=== PATIENT | female | born 1980 | race Caucasian/White ===

== ENCOUNTER 2016-10-02 14:59 | Emergency (ER) | payer BC, MEDICAID ==
[2016-10-02 16:08] VITALS: BP 128/85
[2016-10-02] MEDS ORDERED: Ketorolac INJ* 60 MG/2 ML VIAL IM ONE (16:45)
--- NOTE | 2016-10-02 20:44 | UC ---
Jane Hutchison SooYoung, scribed for Cadence Higuera DO on 10/02/16 at 1624 . Back Pain HPI - HPI Summary HPI Summary: A 36 y/o F presents to [facility] [place] with c/o lumbar/sacral pain onset this AM hours [employer]. Pt turned and her back "snapped, crackled, popped." L side is much worse than R. Pain radiating out to L hip. It caused her to lose her balance and cry. She was able to go to work, but the pain did not subside. She called her doctor, who referred her to [facility] [place]. She rates the pain as 8 out of 10 if she's still, and 10 out of 10 when moving. Associated abd pain. Denies: n/v/d, fever, CP, SOB. PT notes having had URI recently with a lot of coughing. Aggravating fx: movement. She has used lidocaine patches, ice packs with no relief. Pert PMHx: sciatica, osteoarthritis, DDD; but today's sx do not feel like past episodes of these. - History of Current Complaint Chief Complaint: UCBackPain Stated Complaint: BACK PAIN Time Seen by Provider: 10/02/16 16:18 Hx Obtained From: Patient Hx Last Menstrual Period: 09/29/15 Onset/Duration: Sudden Onset, Lasting Hours, Still Present Timing: Constant Severity Initially: Severe Severity Currently: Severe Pain Intensity: 8 Pain Scale Used: 0-10 Numeric Back Pain: Is Discrete @ - sacrum, Radiates To - hips, L more than R Character: Sharp Aggravating: Movement, Lifting, Bending, Walking Alleviating: Rest - not moving Associated Signs And Symptoms: Positive: Abdominal Pain. Negative: Swelling, Redness, Bruising, Fever, Weakness, Numbness, Tingling, Flank Pain, Bladder Incontinence, Bowel Incontinence - Risk Factors Cauda Equina Risk Factors: Negative - Allergies/Home Medications Allergies/Adverse Reactions: Allergies Allergy/AdvReac Type Severity Reaction Status Date / Time No Known Allergies Allergy Verified 10/02/16 15:56 Home Medications: Home Medications Amphetamine/Dextroamph ER(NF) [Adderal XR (NF)] 1 cap DAILY 10/02/16 [History Confirmed 10/02/16] Antidepressant Med 1 tab DAILY 10/02/16 [History] Chlorzoxazone [Lorzone] 500 mg TID 10/02/16 [History Confirmed 10/02/16] Ibuprofen TAB* [Advil TAB*] 2 tab PRN 10/02/16 [History] celeCOXIB CAP* [Celebrex CAP*] 1 cap BID 10/02/16 [History Confirmed 10/02/16] PMH/Surg Hx/FS Hx/Imm Hx - Additional Past Medical History Additional PMH: DDD, osteoarthritis, sciatica Previously Healthy: No Endocrine History Of: Denies: Diabetes, Thyroid Disease Cardiovascular History Of: Denies: Cardiac Disorders, Hypertension Respiratory History Of: Denies: COPD, Asthma GI/ History Of: Denies: Ulcer - Surgical History Surgical History: Yes Surgery Procedure, Year, and Place: hernia repair 1984, gastric bypass 2000, t& a 2009 - Family History Known Family History: Positive: Unknown - adopted - Social History Occupation: Employed Full-time Lives: Alone Alcohol Use: None Substance Use Type: None Smoking Status (MU): Light Every Day Tobacco Smoker Type: Cigarettes Cessation Counseling: Patient Advised to Stop Review of Systems Constitutional: Negative Skin: Negative Eyes: Negative ENT: Negative Respiratory: Negative Cardiovascular: Negative Gastrointestinal: Negative Genitourinary: Negative Motor: Negative Neurovascular: Negative Musculoskeletal: Other: - pos: lower back pain radiating to hips, L worse than R Neurological: Negative Psychological: Negative All Other Systems Reviewed And Are Negative: Yes Physical Exam Triage Information Reviewed: Yes Appearance: Well-Appearing, Pain Distress - MODERATE, DRAMATIC, Obese Vital Signs: Initial Vital Signs Temp 97.9 F 10/02/16 16:00 Pulse 78 10/02/16 16:00 Resp 18 10/02/16 16:00 BP 128/85 10/02/16 16:00 Pulse Ox 100 10/02/16 16:00 Vital Signs Reviewed: Yes Eyes: Positive: Conjunctiva Clear. Negative: Discharge ENT: Positive: Hearing grossly normal. Negative: Muffled/hoarse voice Neck exam: Normal Neck: Positive: Supple Respiratory: Positive: Chest non-tender, Lungs clear, Normal breath sounds, No respiratory distress Cardiovascular: Positive: RRR, No Murmur Musculoskeletal Exam: Normal Musculoskeletal: Positive: ROM Limited @ - IN BACK AT ALL PLANES DUE TO PAIN, Other: - paraspinal spasm and tenderness bl Neurological: Positive: Alert, Muscle Tone Normal, Other: - strength, sansation and reflexes intact bl Psychological Exam: Normal Psychological: Positive: Age Appropriate Behavior Skin Exam: Normal, Other - warm, dry, nml color Back Pain Course/Dx - Differential Dx/Diagnosis Differential Diagnosis/HQI/PQRI: Herniated Disc, Strain, Other - sciatica, piriformis syndrom Provider Diagnoses: low back strain Discharge - Discharge Plan Condition: Stable Disposition: HOME Prescriptions: Cyclobenzaprine TAB* [Flexeril TAB*] 10 mg PO TID PRN #30 tab PRN Reason: Pain HYDROcodone/ACETAMIN 5-325 MG* [[place] 5-325 TAB*] 1 tab PO Q6H PRN #14 tab MDD 4 TABS PRN Reason: Pain predniSONE TAB* [Deltasone TAB*] 40 mg PO DAILY #10 tab Patient Education Materials: Low Back Strain (ED) Referrals: Lyn Reyes NP [Nurse Practitioner] - 4 Days Additional Instructions: MUSCLE RELAXERS: Muscle relaxing medications are usually prescribed for acute muscle spasm or injury to the neck and back. They are often combined with antiinflammatory pain medication for increased relief. You may stop the muscle relaxer when the pain and stiffness have improved. Start the medication again if spasms recur. Muscle relaxers may cause drowsiness, especially with the first dose. Do not operate machinery or drive while under the effects of the medication. Most muscle relaxers last up to 24 hours. Do not combine the medication with alcohol. ORAL NARCOTIC MEDICATION: You have been given a prescription for pain control. This medication is a narcotic. It's best taken with food, as nausea can result if taken on an empty stomach. Don't operate machinery or drive within six hours of taking this medication. Do not combine this medicine with alcohol, or with any medication which can cause sedation (such as cold tablets or sleeping pills) unless you get permission from the physician. Narcotics tend to cause constipation. If possible, drink plenty of fluids and eat a diet high in fiber and fruits. CORTICOSTEROID MEDICATION: You have been given a medicine of the cortisone class. This medication is used to control inflammation or allergy. It is usually only given for a short period of time, until the acute process subsides. There are usually no side effects from short-term use of cortisone-like medications. Some persons feel an increased sense of well-being and are not sleepy at bedtime. Long-term use of cortisone medications is best avoided, unless required for a severe condition. If your condition does not remit, or relapses after the course of corticosteroid medication, you should consult your physician. Contact the physician if you develop lightheadedness, black or tarry stools , swelling of the legs, or significant rapid change in weight. PHYSICAL THERAPY REFERRAL: You have been prescribed physical therapy. Treatments may include stretching, exercise, application of heat or cold, and other modalities. After an injury, PT can reduce swelling and pain. In recovery, PT is used to restore mobility and strength. Your specific treatment goals are: Reduction of Swelling (EGS, US, ice as needed) __x___ Pain Reduction (EGS, US, ice as needed) TENS Pack Fitting and Instruction Wound Hydrotherapy _x____ Preservation of Mobility Jehovah'S Witness of Mobility Strength Jehovah'S Witness __x___ Work or Sports Hardening This instruction sheet also serves as your PHYSICAL THERAPY REFERRAL! Please take it with you to the therapist, so he/she will be aware of your diagnosis and treatment plan. You may see the physical therapist of your choice for these treatments, but may wish to check with your insurance to be sure the provider you select is covered. It's important to see the doctor to whom you have been referred for follow up. YOU WOULD LIKELY BENEFIT FROM OSTEOPATHIC MANIPULATION. WE RECOMMEND THAT YOU FIND AN OSTEOPATHIC PHYSICIAN IN YOUR AREA WHO FOCUSES EXCLUSIVELY ON OSTEOPATHIC MANIPULATION WITH EXPERTISE IN LYMPHATIC, MYOFACIAL AND VISCERAL WORK The documentation as recorded by the Jane alicea SooYoung accurately reflects the service I personally performed and the decisions made by me, Cadence Higuera DO.
== END 2016-10-02 17:40 | disposition home or self-care (01) ==
LOC: UCEAST 14:59
DX: S39.012A Strain of muscle, fascia and tendon of lower back, initial encounter (principal); X50.1XXA Overexertion from prolonged static or awkward postures, initial encounter; Y93.9 Activity, unspecified; Y92.9 Unspecified place or not applicable; R10.84 Generalized abdominal pain; F17.210 Nicotine dependence, cigarettes, uncomplicated
CPT/HCPCS: 96372; 99212; G0463; J1885

== ENCOUNTER 2018-03-08 08:14 | Emergency (ER) | payer BC, MEDICAID ==
--- NOTE | 2018-03-08 08:50 | ED ---
GI/ HPI - HPI Summary HPI Summary: Bariatric status patient presents with nausea, vomiting and diarrhea for the past 2 weeks. She reports this started as nausea, vomiting and diarrhea and then simply diarrhea persisted until the past 48 hours when nausea and vomiting have returned. She admits to feeling feverish on and off for about an hour at a time but nothing consistent or persistent. She does have a headache currently - feels like she is being squeezed on both sides her head. Also admits to some muscle soreness. Diarrhea is triggered by eating/drinking anything including water. She has been trying to stay hydrated w/ water, electrolyte water, etc. Has not tried BRAT diet - can't tolerate yet. Has tried soup broth, crackers. Stool is now yellow, mucousy. No melena nor hematochezia. Denies chest pain, shortness of breath, respiratory symptoms, difficulty breathing or swallowing, vaginal symptoms such as irritation/discharge, and no urinary symptoms such as dysuria/urinary frequency/flank pain/hematuria, and no skin changes. She does feel that her ankles and feet are more swollen then she is accustomed to - left greater than right. Feels they've improved this morning since yesterday. She's not had this issue before and is not sure why she is having this. LMP 25 - spotting a few days ago - otherwise, regular cycle. Follows w/ TRADING ANALYST annually - no abnormal reproductive hx. Takes multiple supplements daily and follows w/ PCP for nutritional labs. - History of Current Complaint Chief Complaint: EDNauseaVomitDiarrh Time Seen by Provider: 03/08/18 08:23 Stated Complaint: N/D X 2 WEEKS Hx Obtained From: Patient Hx Last Menstrual Period: 09/29/15 Pain Intensity: 7 - Allergy/Home Medications Allergies/Adverse Reactions: Allergies Allergy/AdvReac Type Severity Reaction Status Date / Time No Known Allergies Allergy Verified 03/08/18 08:21 Home Medications: Home Medications Amphetamine/Dextroamph ER(NF) [Adderal XR (NF)] 20 mg PO .NOON 03/08/18 [ History Confirmed 03/08/18] Amphetamine/Dextroamph ER(NF) [Adderal XR (NF)] 40 mg PO QAM 03/08/18 [History Confirmed 03/08/18] Cetirizine* [ZyrTEC 10 MG TAB*] 10 mg PO DAILY 03/08/18 [History Confirmed 03/08] Chlorzoxazone 500 mg PO TID 03/08/18 [History Confirmed 03/08/18] Diazepam TAB(*) [Valium TAB(*)] 5 mg PO TID PRN 03/08/18 [History Confirmed 08/15] Doxepin (NF) 100 mg PO BEDTIME 03/08/18 [History Confirmed 03/08/18] Pantoprazole TAB (NF) [Protonix TAB (NF)] 40 mg PO BID 03/08/18 [History Confirmed 03/08/18] Ranitidine TAB (NF) [Zantac TAB (NF)] 300 mg PO BEDTIME 03/08/18 [History Confirmed 03/08/18] Sucralfate TAB* [Carafate*] 1 gm PO ACHS 03/08/18 [History Confirmed 03/08/18] celeCOXIB CAP* [CeleBREX CAP*] 200 mg PO BID 03/08/18 [History Confirmed ] PMH/Surg Hx/FS Hx/Imm Hx Previously Healthy: Yes Endocrine/Hematology History: Denies: Hx Anticoagulant Therapy, Hx Blood Disorders, Hx Diabetes, Hx Thyroid Disease Cardiovascular History: Denies: Hx Hypertension Respiratory History: Denies: Hx Asthma, Hx Chronic Obstructive Pulmonary Disease (COPD) GI History: Reports: Hx Gastroesophageal Reflux Disease - take sulcrafate, ranitidine and PPI, Other GI Disorders - h/o hernia w/ repair 1984; dysmenorrhea ; Rojas en y 2000 Denies: Hx Cirrhosis, Hx Crohn's Disease, Hx Diverticulosis, Hx Gall Bladder Disease, Hx Gastrointestinal Bleed, Hx Hiatal Hernia, Hx Irritable Bowel, Hx Obstructive Bowel, Hx Ulcer History: Denies: Hx Kidney Infection, Hx Kidney Stones, Hx Renal Disease - Surgical History Surgery Procedure, Year, and Place: hernia repair 1984, gastric bypass 2000, t& a 2009 Infectious Disease History: No Infectious Disease History: Denies: Hx Hepatitis, Hx Human Immunodeficiency Virus (HIV), Traveled Outside the [place] in Last 30 Days - Family History Known Family History: Positive: Unknown - adopted - Social History Alcohol Use: None Hx Substance Use: No Substance Use Type: Reports: None Hx Tobacco Use: Yes Smoking Status (MU): Current Every Day Smoker Type: Cigarettes Review of Systems Positive: Fever - subjective, Fatigue - feels wiped out. Negative: Chills Eyes: Negative ENT: Negative Cardiovascular: Negative Respiratory: Negative Positive: Vomiting, Diarrhea, Nausea. Negative: Abdominal Pain Genitourinary: Negative Musculoskeletal: Negative Skin: Negative Positive: Headache Psychological: Normal All Other Systems Reviewed And Are Negative: Yes Physical Exam Triage Information Reviewed: Yes Vital Signs On Initial Exam: Initial Vitals Temp Pulse Resp BP Pulse Ox 99.3 F 77 16 125/78 100 03/08/18 08:17 03/08/18 08:17 03/08/18 08:17 03/08/18 08:17 03/08/18 08:17 Vital Signs Reviewed: Yes Appearance: Positive: Ill-Appearing - appears mildly fatigued but is alert and reponsive Skin: Positive: Warm, Skin Color Reflects Adequate Perfusion, Dry Head/Face: Positive: Normal Head/Face Inspection Eyes: Positive: Normal, EOMI, PENELOPE, Conjunctiva Clear - anicteric ENT: Positive: Normal ENT inspection, Hearing grossly normal, Pharynx normal - mucosa moist Neck: Positive: Supple Respiratory/Lung Sounds: Positive: Clear to Auscultation, Breath Sounds Present Cardiovascular: Positive: Normal, RRR, Pulses are Symmetrical in both Upper and Lower Extremities, Leg Edema Left - mild about the lateral ankle - + pitting, S1 , S2. Negative: Murmur, Rub Abdomen Description: Positive: No Organomegaly, Soft, Other: - RUQ TTP and lower /central pubic TTP. Negative: Distended, Hernia @ Bowel Sounds: Positive: Present Musculoskeletal: Positive: Normal, Strength/ROM Intact Neurological: Positive: Normal, Sensory/Motor Intact, Alert, Oriented to Person Place, Time, CN Intact II-III Psychiatric: Positive: Anxious Diagnostics - Vital Signs Vital Signs Temp Pulse Resp BP Pulse Ox 03/08/18 08:17 99.3 F 77 16 125/78 100 - Laboratory Result Diagrams: 03/08/18 08:51 03/08/18 08:51 Lab Statement: Any lab studies that have been ordered have been reviewed, and results considered in the medical decision making process. Re-Evaluation - Re-Evaluation First Eval Change: Improved - nausea improved - resting comfortably Second Eval Change: Worse - feling worse - diarrhea has returned and still has ab pain - will order CT GIGU Course/Dx - Course Course Of Treatment: Patient presents with diarrhea 2 weeks. The source of this is unknown is no one else that she's been around has this and she denies eating or drinking any new foods or beverages. She is a bariatric Rojas-en-Y patient over a decade ago. She reports that she keeps up with her nutritional requirements and follows up routinely. No history of GI issues since surgery. She has tried Imodium and Lomotil the past few days to stop her diarrhea which has been unsuccessful. She feels weak and dehydrated today and reports her stool is now yellowish mucousy. Her white blood cells are within normal limits she does appear to be dehydrated, especially hypokalemic. Once her nausea was controlled, this was replaced by mouth with 40 mEq of potassium chloride. Patient tolerated that well. Her CRUZ and energy also improved w/ hydration replacement. Her stool is negative for C. difficile and blood however she does have a positive immunoassay. Although she was feeling better for period of time , she reported feeling worse upon recheck and so CT of her abdomen and pelvis was ordered to assess for colitis. CT reveals ascending colitis and possibly cholecystitis. Since pt sx corrected and she is feeling better after CT (and has no RUQ pain w/ palpation), she is requesting to go home and f/u outpt. Discussed w/ Dr. Escamilla who agrees pt may be d/c'd home w/ anbx and close f/u. Pt may have further assessment of her gallbladder by general surgery should this issue persist. Danger s/sx of 2when to return to ED reviewed. Also discussed that if stool cx's return w/ bacterial oraganisms that require different anbx, she will receive a call. - Diagnoses Provider Diagnoses: Colitis, Diarrhea, Cholecystitis Discharge - Sign-Out/Discharge Documenting (check all that apply): Discharge/Admit/Transfer - Discharge Plan Condition: Stable Disposition: HOME Prescriptions: Ciprofloxacin TAB* [Cipro 500 MG TAB*] 500 mg PO BID #14 tab metroNIDAZOLE [Flagyl 500 MG TAB] 500 mg PO TID #21 tab Patient Education Materials: Infectious Colitis (ED) Referrals: Terell COPELAND,Trevor Jerome [Primary Care Provider] - Additional Instructions: Stay hydrated with water, electrolyte replacement drinks another clear/fat-free liquids over the next 48 hours. You may gradually advance your diet to bananas , rice, applesauce and toast again without fats. Initiate your antibiotics and take as directed. If additional cultures return requiring you to change medications, you will receive a phone call with that update. It is important that you follow up with her PCP regarding the results of your ultrasound and CT scan as not only to have colitis which is mostly caused by your diarrhea (or your diarrhea has caused colitis) but you also have some sludge in your gallbladder and thickening of your gallbladder. This may be addressed at a later date symptoms improve. *If you feel worse, return to the emergency department. - Billing Disposition and Condition Condition: STABLE Disposition: Home
[2018-03-08] MEDS ORDERED: Thiamine IV 100 MG, Folic Acid IV* 1 MG, Multiple Vitamin IV ADULT* 10 ML in NS 0.9% 10... IV ONE (08:55)
[2018-03-08 08:59] LABS: ABS Basophils 0.1 10^3/ul (0-0.2); ABS Eosinophils 0.2 10^3/ul (0-0.6); ABS Lymphocytes 1.7 10^3/ul (1.0-4.8); ABS Monocytes 0.5 10^3/ul (0-0.8); ABS Nucleated RBC 0 10^3/ul; Eosinophil % 2.3 % (0-6); Hematocrit 40 % (35-47); Hemoglobin 13.8 g/dl (12.0-16.0); Lymphocyte % 18.2 % (25-47); Mean Corpuscular HGB Conc 35 g/dl (31-36); Mean Corpuscular Hemoglobin 33 pg (27-31); Mean Corpuscular Volume 96 fL (80-97); Mean Platelet Volume 8.7 um3 (7.4-10.4); Nucleated Red Blood Cells % 0; Platelet Count 374 10^3/ul (150-450); Red Blood Count 4.18 10^6/ul (4.0-5.4); Red Cell Distribution Width 13 % (10.5-15); White Blood Count 9.4 10^3/ul (3.5-10.8)
[2018-03-08 09:22] LABS: INR 1.01 (0.77-1.02)
[2018-03-08 09:27] LABS: EGFR Non-African American 99.2 (>60)
[2018-03-08] MEDS ORDERED: PROCHLORPERAZINE INJ 5 MG/ML 2 ML VIAL IV ONE (09:29)
--- NOTE | 2018-03-08 10:05 | RAD ---
Indication: RIGHT upper quadrant pain. Nausea and vomiting. Diarrhea for 2 weeks. Comparison: December 22, 2016 CT. Technique: RIGHT upper quadrant ultrasound. Report: Appropriate direction flow documented in the portal and hepatic veins. 20 cm liver is normal in echogenicity. 0.8 cm maximum dimension well-circumscribed markedly hyperechoic nonshadowing nodule at the RIGHT hepatic lobe is consistent with a small hemangioma without concern. Negative for intrahepatic biliary dilatation. 3 mm common bile duct. Adequately distended gallbladder is remarkable for a biliary sludge ball. Gallbladder wall is thickened measuring up to 5 mm. Negative for pericholecystic fluid. Negative for sonographic Figueredo's sign. The pancreatic tail is partially obscured due to bowel gas with the visualized pancreas unremarkable. Negative for ascites. 11.6 cm RIGHT kidney is unremarkable. IMPRESSION: 1. Mildly enlarged liver. 2. Biliary sludge in the gallbladder and mild diffuse gallbladder wall thickening. No secondary findings such as pericholecystic fluid or sonographic Figueredo's sign to favor acute cholecystitis.
[2018-03-08] MEDS ORDERED: Potassium Chlor TAB* 20 MEQ TAB.ER PO ONE (10:47)
[2018-03-08 11:38] LABS: Urine Appearance Clear; Urine Blood Negative (Negative); Urine Color Yellow; Urine Ketones 1+ (Negative); Urine Protein Negative (Negative); Urine Specific Gravity 1.019 (1.010-1.030); Urine Urobilinogen Negative (Negative)
[2018-03-08] MEDS ORDERED: Iohexol 300* (CONTRAST) 10 ML SDV IV ONE (12:43)
--- NOTE | 2018-03-08 13:50 | RAD ---
INDICATION: Abdominal pain and diarrhea, possible colitis. COMPARISON: Comparison is made with a prior CT of the abdomen and pelvis from December 18, 2016 any prior right upper quadrant ultrasound from March 08, 2018. TECHNIQUE: A CT scan of the abdomen and pelvis was performed with intravenous and without oral contrast following intravenous injection of 100 ml of Omnipaque 300 nonionic contrast. Contiguous axial sections were obtained from the lung bases through the symphysis pubis. Images were reconstructed in the coronal and sagittal planes. FINDINGS: There is mild dependent bilateral lower lobe subsegmental atelectasis. No pleural effusion is present. The liver is mildly enlarged without significant focal hepatic abnormality. No calcified gallstones are seen. There is mild diffuse thickening of the gallbladder wall. The pancreas appears to be within normal limits. The kidneys and adrenal glands are normal in size. No hydronephrosis is seen. No significant focal renal abnormality is seen. The aorta is normal in caliber and demonstrates homogeneous contrast opacification. No significant enlarged retroperitoneal lymph nodes are seen. The patient is status post Rojas-en-Y gastric bypass surgery. The excluded stomach appears nondistended. The small bowel and colon appear nondistended. The appendix is within normal limits. There is mild thickening of the wall of the ascending colon versus upper limits of normal variation. There is a small periumbilical hernia containing fat. The uterus is anteverted and normal in size. There is a 2.4 cm left ovarian cyst and a 1.8 cm involuting left ovarian follicular cyst. There is a trace amount of fluid in the pelvis. No free intracranial air is seen. No significant focal osseous abnormality is seen. IMPRESSION: 1. MILD THICKENING OF THE WALL OF THE ASCENDING COLON SUGGESTING THE POSSIBILITY OF COLITIS VERSUS UPPER LIMITS OF NORMAL VARIATION. THE EXAM IS LIMITED WITHOUT ORAL CONTRAST. RECOMMEND CLINICAL CORRELATION 2. MILD GALLBLADDER WALL THICKENING. THE POSSIBILITY OF ACUTE CHOLECYSTITIS CANNOT BE EXCLUDED. RECOMMEND CLINICAL CORRELATION. 3. MILD HEPATOMEGALY, UNCHANGED. 4. STATUS POST GASTRIC BYPASS SURGERY. 5. 1.8 CM INVOLUTING LEFT FOLLICULAR CYST AND TRACE AMOUNT OF FREE INTRAPERITONEAL FLUID IN THE PELVIS.
[2018-03-08 15:21] VITALS: BP 129/79
== END 2018-03-08 15:23 | disposition home or self-care (01) ==
LOC: ED 08:14
DX: K52.9 Noninfective gastroenteritis and colitis, unspecified (principal); K81.9 Cholecystitis, unspecified; K21.9 Gastro-esophageal reflux disease without esophagitis; R16.0 Hepatomegaly, not elsewhere classified; N83.02 Follicular cyst of left ovary; R00.1 Bradycardia, unspecified; R53.83 Other fatigue; R50.9 Fever, unspecified; R51 Headache; Z98.84 Bariatric surgery status; F17.210 Nicotine dependence, cigarettes, uncomplicated
CPT/HCPCS: 36415; 74177; 76705; 80053; 81003; 82272; 83605; 83630; 83690; 83735; 84425; 84702; 85025; 85610; 85730; 86140; 86850; 86900; 86901; 87045; 87046; 87077; 87493; 87899; 93005; 96365; 96366; 96375; 99283; A9270-GY; J0780; J3411; Q9967

== ENCOUNTER 2018-03-25 09:59 | Day surgery (SDC) | payer MEDICAID ==
[~2018-03-25 09:59] MED LIST: Atracurium* 10 MG/ML 10 ML VIAL ONE; Buffered Lidocaine 0.9% SYRIN* 5 ML/SYR SYRINGE INTRADERM ONE; Dexamethasone TAB* 4 MG PO ONE; DiMENhydriNATE IV* 50 MG/ML VIAL IV PUSH PRN; Famotidine IV* 10 MG/ML 2 ML (20 mg) IV ONE; KETAMINE HCL* 50 MG/ML 10 ML VIAL ONE; Midazolam* 1 MG/ML 10 ML VIAL (10 MG) ONE; Morphine INJ* 2 MG/ML 1 ML CARPUJECT IV PRN; Naloxone* 0.4 MG/ML 1 ML VIAL IV PRN; Ondansetron TAB* 4 MG PO ONE; PROCHLORPERAZINE INJ 5 MG/ML 2 ML VIAL IV PRN; Scopolamine 1.5 mg* PATCH TRANSDERM PRN; fentaNYL* 50 MCG/ML 2 ML VIAL (100 MCG VIAL) IV PRN; fentaNYL* 50 MCG/ML 2 ML VIAL (100 MCG VIAL) ONE; oxyCODONE/Acetamin 5/325 MG* TAB PO PRN
[2018-03-25] MEDS ORDERED: Bupivacaine 0.5% SDV PF* 30ML VIAL ONE (10:09)
[2018-03-25] MEDS ORDERED: Ondansetron ODT TAB* 4 MG ONE (10:16)
[2018-03-25] MEDS ORDERED: Famotidine IV* 10 MG/ML 2 ML (20 mg) ONE (10:16)
[2018-03-25] MEDS ORDERED: Dexamethasone TAB* 4 MG ONE (10:16)
[2018-03-25] MEDS ORDERED: Ketorolac INJ* 30 MG/ML 1 ML VIAL ONE ×2 (10:17→11:02)
[2018-03-25] MEDS ORDERED: ceFAZolin 2 GM PREMIX (*) 2 GM/50 ML BAG IVPB ONE (10:17)
[2018-03-25] MEDS ORDERED: fentaNYL* 50 MCG/ML 2 ML VIAL (100 MCG VIAL) ONE ×2 (10:23→12:36)
[2018-03-25] MEDS ORDERED: PROCHLORPERAZINE INJ 5 MG/ML 2 ML VIAL ONE (11:02)
[2018-03-25] MEDS ORDERED: Lidocaine 2% PF * 5 ML VIAL ONE (11:02)
[2018-03-25] MEDS ORDERED: Neostigmine Methylsulfate* 1 MG/ML 10 ML VIAL (1 mg/ml) ONE (11:02)
[2018-03-25] MEDS ORDERED: Glycopyrrolate IV* 0.2 MG/ML 1 ML VIAL ONE ×2 (11:02→11:17)
[2018-03-25] MEDS ORDERED: Propofol* 10 MG/ML 20 ML BTL IV PUSH ONE (11:02)
[2018-03-25] MEDS ORDERED: Morphine INJ* 10 MG/ML 1 ML CARPUJECT ONE (11:04)
[2018-03-25] MEDS ORDERED: oxyCODONE/Acetamin 5/325 MG* TAB ONE (12:36)
[2018-03-25 13:02] VITALS: BP 105/70
--- NOTE | 2018-03-26 00:22 | OP ---
CC: Dr. Trevor Figueredo * DATE OF OPERATION: 03/25/18 - SDS DATE OF : 76 SURGEON: Robert Francisco MD ASSISTANT CREDIT MANAGER: Doris Salas NP ANESTHESIOLOGIST: Dr. Uribe. ANESTHESIA: General anesthetic, local infiltration by the surgeon. PRE-OP DIAGNOSIS: Biliary colic. POST-OP DIAGNOSIS: Biliary colic. OPERATIVE PROCEDURE: Laparoscopic cholecystectomy. DESCRIPTION OF PROCEDURE: The patient was supine on the operative table. The abdomen was prepped with antiseptic and draped in a sterile fashion. Local infiltrative anesthesia was administered, small umbilical incision was created, blunt port cannula was placed. Insufflation was carried out with carbon dioxide. Additional cannulae, 10 mm subxiphoid and 5 mm right upper quadrant, right anterior axillary line, placed through small stab wounds under direct vision. Gallbladder was tended upward. It was not acutely inflamed. The areolar tissue was taken down to cystic duct and the cystic artery, which were readily identified, clipped, and divided. This was taken well away from the common duct. Gallbladder was taken off the liver bed using electrocautery. Hemostasis was obtained using electrocautery. The gallbladder was removed through the subxiphoid port without difficulty. Hemostasis was good. The cannulae were removed. Pneumoperitoneum was allowed to escape. Umbilical fascia was closed with 0-Vicryl, skin with 5-0 Vicryl followed by Steri-Strips. She tolerated the procedure well, was awakened, extubated, and brought to Recovery in good condition. No complications. No drains. Pathologic specimen gallbladder. Sponge and instrument counts correct. Estimated blood loss less than 30 mL. [id number]/[facility] #: [id number] [facility]
[2018-03-28] MEDS ORDERED: Scopolamine PATCH Remove* 1 NOTE MISC PATCH OFF ONE (05:46)
== END 2018-03-25 13:23 | disposition home or self-care (01) ==
LOC: OR 09:59
PROVIDERS: ATTEND Surgery
DX: K81.1 Chronic cholecystitis (principal); Z72.0 Tobacco use; R10.11 Right upper quadrant pain; R19.7 Diarrhea, unspecified; Z98.84 Bariatric surgery status
CPT/HCPCS: 88304; A9270-GY; J0690; J0780; J1885; J2250; J2270; J2704; J2710; J3010; J8540

== ENCOUNTER 2018-07-08 17:26 | Emergency (ER) | payer BC, MEDICAID ==
[2018-07-08 18:29] VITALS: BP 133/84
--- NOTE | 2018-07-08 19:28 | UC ---
Throat Pain/Nasal Joon HPI - HPI Summary HPI Summary: Pt presents with ongoing right ear pain x 48 hours. Pt states has had intermittent fevers since colonoscopy several weeks ago. pt denies abdominal pain. Pt states x 1week has sinus pressure, PND, congestion. no analgesia taken. States ear feels full with decreased hearing. no analgesia or decongestat taken today. No other complaints. + sick contact Pt's medications reviewed this visit - History of Current Complaint Chief Complaint: UCEar Stated Complaint: FEVER Time Seen by Provider: 07/08/18 18:46 Hx Obtained From: Patient Hx Last Menstrual Period: 1 MONTH AGO Onset/Duration: Gradual Onset Pain Intensity: 8 - Allergies/Home Medications Allergies/Adverse Reactions: Allergies Allergy/AdvReac Type Severity Reaction Status Date / Time latex Allergy Mild Rash Verified 07/08/18 18:29 Home Medications: Home Medications Acetaminophen [Acetaminophen Extra Strength] 2 tab PO PRN 07/08/18 [History] Ibuprofen TAB* [Advil TAB*] 200 mg PO PRN 07/08/18 [History] Pseudoephedrine TAB* [Sudafed TAB*] 60 mg PO PRN 07/08/18 [History] guaiFENesin [Guaifenesin] 200 mg PO PRN 07/08/18 [History] PMH/Surg Hx/FS Hx/Imm Hx Previously Healthy: Yes Other History Of: Negative For: Anticoagulant Therapy - Surgical History Surgical History: Yes Surgery Procedure, Year, and Place: right inguinal hernia repair 1984, gastric bypass 2000, t&a 2009, CHOLECYSTECTOMY 2018 - Family History Known Family History: Positive: Other - noncontributory - Social History Lives: With Family Alcohol Use: None Substance Use Type: None Smoking Status (MU): Current Every Day Smoker Type: Cigarettes Amount Used/How Often: 1/2 PPD Review of Systems Constitutional: Fever ENT: Ear Ache, Nasal Discharge, Sinus Congestion Respiratory: Cough Gastrointestinal: Negative All Other Systems Reviewed And Are Negative: Yes Physical Exam - Summary Physical Exam Summary: Vital Signs Reviewed: Yes A+Ox3, no distress Eyes: Conjunctiva Clear, PENELOPE. EOM intact and full ENT: Hearing grossly normal right TM + fluid, erythema left TM scant fluid, turbiantes inflammed and boggy, + PND, mmoist, uvula midline, no exudate, no erythema Neck: Positive: Supple Respiratory: Positive: No respiratory distress, No accessory muscle use + CTA throughout no w/r Cardiovascular: RRR nl s1, s2 no m/r CBT <2 sec abd soft + BS nt/nd no guarding, no distension Musculoskeletal Exam: DAVALOS x 4 without difficulty Strength Intact, ROM Intact Neurological: Positive: Alert, + sensation throughout Psychological: Positive: Normal Response To Family Skin: Positive: no rash, no ecchymosis Triage Information Reviewed: Yes Vital Signs: Initial Vital Signs Temp 98.3 F 07/08/18 18:23 Pulse 67 07/08/18 18:23 Resp 16 07/08/18 18:23 BP 133/84 07/08/18 18:23 Pulse Ox 100 07/08/18 18:23 Throat Pain/Nasal Course/Dx - Course Course Of Treatment: pt presens with right ear pain x 2 days, head congestion x1 week and intermittent fevers. Pt with right OM on exam. Rx abx. decongestant. motrin/apap. humidified air. return precautions - Differential Dx/Diagnosis Provider Diagnoses: right OM Discharge - Sign-Out/Discharge Documenting (check all that apply): Patient Departure All imaging exams completed and their final reports reviewed: No Studies - Discharge Plan Condition: Stable Disposition: HOME Prescriptions: Amoxicillin/Clavulanate TAB* [Augmentin TAB 500 mg*] 500 mg PO BID #20 tab Fluconazole [Diflucan 150 MG (NF)] 150 mg PO ONCE PRN #1 tab PRN Reason: vaginal yeast infection Patient Education Materials: Ear Infection (ED) Referrals: Terell COPELAND,Trevor Jerome [Primary Care Provider] - Additional Instructions: - Take antibiotics as prescribed until gone - alternate ibuprofen (Advil, Motrin) and tylenol every 3hours for pain or fever - These infections are spread by secretions - do NOT share eating or drinking utensils - clean items you share with other people such as cell phones, computer mouse, TV remote, computer tablets,etc. Once you have been antibiotics for 2 days, change your toothbrush and your pillowcase. - Contact your doctor or return with questions or concerns -You have been given a prescription for diflucan - okay to use if you develop yeast infection - Billing Disposition and Condition Condition: STABLE Disposition: Home
== END 2018-07-08 19:41 | disposition home or self-care (01) ==
LOC: UCEAST 17:26
DX: H66.91 Otitis media, unspecified, right ear (principal); Z91.040 Latex allergy status; F17.210 Nicotine dependence, cigarettes, uncomplicated
CPT/HCPCS: 99212; G0463